=== PATIENT | female | born 1995 | race Caucasian/White ===

== ENCOUNTER 2017-03-05 22:32 | Inpatient (IN) | payer MEDICAID ==
[~2017-03-05] VITALS: Ht 175.3 cm; Wt 61.8 kg
[~2017-03-05 22:32] MED LIST: IBUP-1542 PO
[2017-03-05] MEDS ORDERED: LACTATED RINGER'S 1,000 ML IV SCH (22:34)
[2017-03-05 22:42] VITALS: Ht 175.3 cm; Wt 61.8 kg
--- NOTE | 2017-03-05 22:50 | TRIAGE ---
OB Triage Datetime Report Generated by CPN: 03/05/2017 22:50 Datetime: 03/05/2017 22:44 EGA: 37.0 Datetime: 03/05/2017 22:42 Effacement (%): 90 Station: -2 Membrane Status: Bulging Datetime: 03/05/2017 22:41 Vaginal Exam Dilatation (cms): 6.0 Datetime: 03/05/2017 22:30 Stage of : OB Triage Time of Arrival: 03/05/2017 22:15 Arrived By: Wheelchair Arrived From: Home Chief Complaint: UCS Movement: Present Contractions: Regular Time Contractions Began: 03/05/2017 18:00 Contractions: 2-3 Rupture of Membranes: Denies Vaginal Bleeding: Normal Show Vaginal Discharge: Denies Recent Sexual Intercouse: Denies Abdominal Trauma: Not Applicable Patient Complaints: Contractions Initial Plan: SVE Datetime: 03/05/2017 22:27 Stage of : OB Triage Vaginal Exam Dilatation (cms): 6.0 Effacement (%): 90 Station: -2 Exam By: M BUCK Membrane Status: Bulging Vaginal Bleeding: Normal Show Datetime: 03/05/2017 22:24 Stage of : OB Triage Labor Evaluation Monitor Mode: External Contraction Comments: PLACED Heart Rate Monitor Mode: External US Comments: PLACED
[2017-03-05 23:00] VITALS: BP 124/62; PULSE 80; RESP 20
[2017-03-05] MEDS ORDERED: IBUPROFEN 600 MG TAB PO PRN (23:00)
[2017-03-05] MEDS ORDERED: CARBOPROST 250 MCG INJ IM PRN (23:00)
[2017-03-05] MEDS ORDERED: OXYTOCIN 30 UNITS/LR 500 ML IV SCH ×2 (23:00)
[2017-03-05] MEDS ORDERED: BUTORPHANOL 2 MG INJ IV PRN (23:00)
[2017-03-05] MEDS ORDERED: MINERAL OIL LIGHT 10 ML VIAL TOP PRN (23:00)
[2017-03-05] MEDS ORDERED: AMPICILLIN 2 GM/NS (PMX) 100 ML IV ONE (23:00)
[2017-03-05] MEDS ORDERED: ACETAMINOPHEN/CODEINE #3 TAB PO PRN (23:00)
[2017-03-05] MEDS ORDERED: LACTATED RINGER'S 1,000 ML IV PRN (23:00)
[2017-03-05] MEDS ORDERED: OXYTOCIN 30 UNITS/LR 500 ML IV PRN (23:00)
[2017-03-05] MEDS ORDERED: LIDOCAINE 1% (MPF) 30 ML INJ INJ PRN (23:00)
[2017-03-05] MEDS ORDERED: MISOPROSTOL 200 MCG TAB PR PRN (23:00)
[2017-03-05] MEDS ORDERED: METHYLERGONOVINE 0.2 MG INJ IM PRN (23:00)
[2017-03-05 23:14] LABS: BASOPHILS % 0.2 % (0.0-2.0); EOSINOPHILS % 0.2 % (0.0-7.0); HEMATOCRIT 34.8 % (37.0-47.0); HEMOGLOBIN 11.8 g/dl (12.0-16.0); LYMPHOCYTES # 1.7 10^3/ul (0.8-2.9); LYMPHOCYTES % 13.3 % (18.0-55.0); MEAN CORPUSCULAR HEMOGLOBIN 29.6 pg (29.0-33.0); MEAN CORPUSCULAR HGB CONC 33.9 g/dl (32.0-37.0); MEAN CORPUSCULAR VOLUME 87.4 fl (72.0-104.0); MEAN PLATELET VOLUME 11.3 fl (7.4-10.4); MONOCYTE # 0.8 10^3/ul (0.3-0.9); MONOCYTES % 6.1 % (0.0-13.0); NEUTROPHIL # 10.2 10^3/ul (1.6-7.5); PLATELET COUNT 198 10^3/UL (140-415); RED BLOOD COUNT 3.98 10^6/ul (4.20-5.40); RED CELL DISTRIBUTION WIDTH 13.8 % (11.5-14.5); WHITE BLOOD COUNT 12.9 10^3/ul (4.8-10.8)
[2017-03-05 23:39] LABS: INR 0.88; PROTIME 11.9 Sec (12.2-14.2); PT RATIO 0.9
[2017-03-05 23:40] LABS: PARTIAL THROMBOPLASTIN TIME 25.2 Sec (25.0-35.0)
--- NOTE | 2017-03-05 23:49 | HP ---
Date/Time of Note Date/Time of Note DATE: 03/05/17 TIME: 23:47 OB - History Hx of Present Free Text/Dictation Admitted in active labor at term Chief Complaint: Liver painS Estimated Due Date: Mar 13, 2017 : 2 Para: 1 Care: Limited Care Ultrasounds: Normal mid trimester US Obstetrical Complications: None Medical Complications: None Past Family/Social History * Past Medical, Surgical, Family and Obstetric Histories reviewed from chart. Blood Type: AB+ Rubella: unknown RPR/VDRL: Unknown GBS Status: Negative HBsAG: Unknown OB Admission Exam Physical Exam HEENT: WNL Heart: Rhythm Normal Lungs: Clear, Equal Abdomen: WNL Extremities: Normal Reflexes: Normal Cervical Dilatation: 7cm Effacement: 100% Station: -3 Accelerations: Accelerations Present Decelerations: No Decelerations Varibility: Moderate Contractions on Admission: < 5 Minutes Apart Date/Time Contractions Began: 03/04/2017 1800 Frequency of Contractions: Q 5 Duration: >60 SECOMDS Intensity: Firm Last 72 hours Lab Results CBC & BMP 03/05/17 22:49 OB Assessment/Plan Reason for admission: active labor Other Assessment: Term gestation Plan: Expectant Management Other plan: Proceed with labor SELAM PRYOR MD Mar 05, 2017 23:49
--- NOTE | 2017-03-05 23:51 | LDN ---
Date/Time of Note Date/Time of Note DATE: 03/05/17 TIME: 23:50 Delivery Summary Normal spontaneous vaginal delivery of a viable over intact perineum Weeks of Gestation 38+ Placenta Delivered: Spontaneously, Intact & Complete Meconium: none Episiotomy: No Perineal laceration: 0 Laceration repair: Small vestibular laceration was repaired using 4-0 chromic Anesthesia type: None Estimated blood loss: 200 Sponge & Needle done & correct: Yes All needle counts correct: Yes Any foreign bodies felt in the: No Problems: Delivery Information Sex Infant Sex: female Apgars 1 Minute: 9 5 Minute: 9 Suctioning Nose & mouth suctioned at lamont: Yes Delee suction performed: No Umbilical Cord Umbilical cord with: 3 Vessels Cord Blood was obtained: Yes Mother & Baby Disposition Disposition Mom & Baby to Maternity; Good: Yes (Mother and baby were recovered in good condition) Mom transferred to: Other (Maternity) Baby to NICU: No SELAM PRYOR MD Mar 05, 2017 23:51
[2017-03-06 02:10] VITALS: BP 112/60; PULSE 94; RESP 18
[2017-03-06] MEDS ORDERED: LACTATED RINGER'S 1,000 ML IV* SCH (02:31)
[2017-03-06] MEDS ORDERED: ACETAMINOPHEN/CODEINE #3 TAB PO PRN ×2 (03:00)
[2017-03-06] MEDS ORDERED: DIBUCAINE 1% 30 GM OINT PR PRN (03:00)
[2017-03-06] MEDS ORDERED: OXYTOCIN 30 UNITS/LR 500 ML IV PRN (03:00)
[2017-03-06] MEDS ORDERED: BENZOCAINE 20% 56 ML SPRAY TOP PRN (03:00)
[2017-03-06] MEDS ORDERED: CARBOPROST 250 MCG INJ IM PRN (03:00)
[2017-03-06] MEDS ORDERED: METHYLERGONOVINE 0.2 MG INJ IM PRN (03:00)
[2017-03-06] MEDS ORDERED: WITCH HAZEL/GLYCERIN PAD PR PRN (03:00)
[2017-03-06] MEDS ORDERED: LANOLIN 7 GM TUBE TOP PRN (03:00)
[2017-03-06] MEDS ORDERED: ZOLPIDEM 5 MG TAB PO PRN (03:00)
[2017-03-06] MEDS ORDERED: MISOPROSTOL 200 MCG TAB PR PRN (03:00)
[2017-03-06] MEDS ORDERED: AMPICILLIN 1 GM/NS (PMX) 50 ML IV SCH (03:00)
[2017-03-06 04:00] VITALS: BP 114/63; PULSE 89; RESP 18
[2017-03-06] MEDS: IBUPROFEN 600 MG TAB PO SCH ×4 (05:43→23:36)
[2017-03-06 08:00] VITALS: BP 92/63; PULSE 85; RESP 16
[2017-03-06 08:38] LABS: BASOPHILS % 0.1 % (0.0-2.0); EOSINOPHILS % 0.1 % (0.0-7.0); HEMATOCRIT 31.2 % (37.0-47.0); HEMOGLOBIN 10.3 g/dl (12.0-16.0); LYMPHOCYTES # 2.1 10^3/ul (0.8-2.9); LYMPHOCYTES % 13.5 % (18.0-55.0); MEAN CORPUSCULAR VOLUME 87.9 fl (72.0-104.0); MEAN PLATELET VOLUME 11.5 fl (7.4-10.4); MONOCYTE # 1.3 10^3/ul (0.3-0.9); MONOCYTES % 8.3 % (0.0-13.0); NEUTROPHIL # 12.1 10^3/ul (1.6-7.5); NEUTROPHILS % 77.1 % (30.0-74.0); PLATELET COUNT 160 10^3/UL (140-415); RED BLOOD COUNT 3.55 10^6/ul (4.20-5.40); RED CELL DISTRIBUTION WIDTH 13.8 % (11.5-14.5); WHITE BLOOD COUNT 15.8 10^3/ul (4.8-10.8)
[2017-03-06] MEDS: MAGNESIUM HYDROXIDE 30ML CUP PO SCH ×2 (09:00→21:29)
[2017-03-06] MEDS: SENNA/DOCUSATE NA (8.6MG/50MG) TAB PO SCH ×2 (09:00→21:29)
[2017-03-06 16:00] VITALS: BP 103/69; PULSE 80; RESP 16
--- NOTE | 2017-03-06 16:28 | DS ---
Date/Time of Note Date/Time of Note Home next day DATE: 03/06/17 TIME: 16:27 Obstetrical Discharge Record Final Diagnosis Final Diagnosis: Term delivered Other Final Diagnosis Status post vaginal delivery Vaginal Delivery Obstetrical Delivery: Spontaneous, Laceration, Repaired Condition on Discharge Physical Assessment Last Vitals: See nurse's note Voiding: Yes Bowel Movement: Yes Breast: Soft, non-tender, Filling Fundus: Firm Abdomen and Incision: Soft bowel sounds positive Episiotomy: Not applicable Calf Tenderness: No Patient Condition: Good SELAM PRYOR MD Mar 06, 2017 16:28
--- NOTE | 2017-03-06 16:29 | PD.PPDC ---
ALMOND GRINDER Discharge Instruction Provider Information Physician Information 21-year-old female had vaginal delivery Diagnosis Final Diagnosis: Status post vaginal Condition Patient Condition: Good Diet Diet: Resume Regular Diet Activity/Restrictions Activity: Normal Activity May Shower Restrictions: Nothing in the Vagina Return to Work or School: Apr 24, 2017 Follow-up Follow-up with Physician: 4, Week/Weeks (In clinic) Return to clinic for OB Instructions: Breast Tenderness Depression SELAM PRYOR MD Mar 06, 2017 16:29
[2017-03-06] MEDS ORDERED: IBUP-1542 PO (16:30)
[2017-03-06 20:00] VITALS: BP 109/50; PULSE 73; RESP 18
[2017-03-07] VITALS: BP 108/55; PULSE 73; RESP 20
[2017-03-07 04:00] VITALS: BP 101/62; PULSE 58; RESP 16
[2017-03-07] MEDS: IBUPROFEN 600 MG TAB PO SCH ×2 (06:03→11:27)
[2017-03-07 08:15] VITALS: BP 96/51; PULSE 72; RESP 18
[2017-03-07] MEDS: MAGNESIUM HYDROXIDE 30ML CUP PO SCH (09:00)
[2017-03-07] MEDS ORDERED: VARICELLA VACCINE LIVE/PF 1,350 UNIT/0.5 ML ML SC* ONE (09:00)
[2017-03-07] MEDS ORDERED: DIPHTH/TET/ACEL PERTUSS (ADULT) 0.5 ML VIAL IM* ONE (09:00)
[2017-03-07] MEDS: SENNA/DOCUSATE NA (8.6MG/50MG) TAB PO SCH (09:00)
[2017-03-07] MEDS ORDERED: MEASLES,MUMPS,RUBELLA VACCINE INJ SC* ONE (09:00)
[2017-03-07 09:14] LABS: BASOPHILS % 0.4 % (0.0-2.0); EOSINOPHILS # 0.1 10^3/ul (0.0-0.5); EOSINOPHILS % 1.3 % (0.0-7.0); HEMATOCRIT 33.6 % (37.0-47.0); HEMOGLOBIN 11.1 g/dl (12.0-16.0); LYMPHOCYTES # 2.7 10^3/ul (0.8-2.9); LYMPHOCYTES % 28.1 % (18.0-55.0); MEAN CORPUSCULAR HEMOGLOBIN 29.4 pg (29.0-33.0); MEAN CORPUSCULAR VOLUME 88.9 fl (72.0-104.0); MEAN PLATELET VOLUME 11.7 fl (7.4-10.4); MONOCYTE # 0.9 10^3/ul (0.3-0.9); MONOCYTES % 9.6 % (0.0-13.0); NEUTROPHIL # 5.8 10^3/ul (1.6-7.5); NEUTROPHILS % 59.6 % (30.0-74.0); PLATELET COUNT 170 10^3/UL (140-415); RED BLOOD COUNT 3.78 10^6/ul (4.20-5.40); RED CELL DISTRIBUTION WIDTH 14.1 % (11.5-14.5); WHITE BLOOD COUNT 9.7 10^3/ul (4.8-10.8)
== END 2017-03-07 13:50 | disposition home or self-care (01) | DRG 775 ==
LOC: OBT 22:32 → L-D 22:33 → OBT 22:35 → PP1 03-06 02:07
PROVIDERS: ADMIT Obstetrics & Gynecology; ATTEND Obstetrics & Gynecology
PROC: 10E0XZZ Delivery of Products of Conception, External Approach (ICD-10-PCS; principal; 2017-03-05)
PROC: 0HQ9XZZ Repair Perineum Skin, External Approach (ICD-10-PCS; 2017-03-05)
PROC: 4A1HX4Z Monitoring of Products of Conception, Cardiac Electrical Activity, External Approach (ICD-10-PCS; 2017-03-05)
DX: O70.0 First degree perineal laceration during delivery (principal); Z37.0 Single live birth; Z3A.38 38 weeks gestation of pregnancy
CPT/HCPCS: 85025; 85610; 85730; 86592; 86900; 86901; 87340; 90715; 90716; G0463; J2590; J7120